=== PATIENT | male | born 1950 | race Caucasian/White ===

== ENCOUNTER 2016-03-31 12:56 | Emergency (ER) | payer OTHER ==
[~2016-03-31] VITALS: Ht 162.6 cm; Wt 99.0 kg
[2016-03-31 13:00] VITALS: Ht 162.6 cm; Wt 99.0 kg
[2016-03-31] MEDS ORDERED: DIPHTH/TET/ACEL PERTUSS (ADULT) 0.5 ML VIAL IM* ONE (14:30)
[2016-03-31] MEDS ORDERED: LIDOCAINE 1% (MDV) 20 ML INJ SC ONE (14:30)
--- NOTE | 2016-03-31 14:42 | ERD ---
ER Documentation Chief Complaint Date/Time DATE: 03/31/16 TIME: 14:38 Chief Complaint lac on L ear 15 min ago HPI Is a 65-year-old male who presents to the emergency department today with his son-in-law for a laceration to the back of his left ear. Son-in-law states that they were both doing some woodwork when a piece of wood fell on the patient's ear. Patient denies any headache, loss of consciousness or nausea or vomiting. Denies any pain. ROS All systems reviewed and are negative except as per history of present illness. Medications Home Meds Active Scripts Acetaminophen* (Tylophen*) 500 Mg Capsule, 1 CAP PO Q6H Y for PAIN AND OR ELEVATED TEMP, #30 CAP Prov:SHANNAN JJ PA-C 03/31/16 Ibuprofen* (Motrin*) 600 Mg Tab, 600 MG PO Q6, #30 TAB Prov:SHANNAN JJ PA-C 03/31/16 Cephalexin* (Keflex*) 500 Mg Capsule, 500 MG PO QID for 7 Days, CAP Prov:SHANNAN JJ PA-C 03/31/16 Sulfamethoxazole-Trimethoprim* (Bactrim* DS) 800-160 Mg Tab, 1 TAB PO BID for 7 Days, TAB Prov:SHANNAN JJ PA-C 03/31/16 PMhx/Soc Medical and Surgical Hx: pt denies Medical Hx, pt denies Surgical Hx Hx Alcohol Use: No Hx Substance Use: No Smoking Status: Never smoker Physical Exam Vitals Vital Signs Date Time Temp Pulse Resp B/P Pulse Ox O2 Delivery O2 Flow Rate FiO2 03/31/16 13:00 98.6 69 20 151/85 95 Physical Exam Const: Pleasant, no acute distress Head: Atraumatic . Nontender mastoid. No hematomas. Eyes: Normal Conjunctiva ENT: Left ear with 2.5 cm laceration on the posterior aspect of the auricle between the head and auricle. Bleeding well controlled. No evidence of foreign body. Neck: Full range of motion..~ No meningismus. Resp: Clear to auscultation bilaterally Cardio: Regular rate and rhythm, no murmurs Abd: Soft, non tender, non distended. Normal bowel sounds Skin: No petechiae or rashes Neur: Awake and alert Psych: Normal Mood and Affect Results 24 hrs Current Medications Medications (Trade) Dose Ordered Sig/Vladimir Route PRN Reason Start Time Stop Time Status Last Admin Dose Admin Diphtheria/ Tetanus/Acell Pertussis (Adacel) 0.5 ml ONCE ONCE IM* 03/31/16 14:30 03/31/16 14:31 DC 03/31/16 15:02 Lidocaine (Xylocaine 1% (Mdv) 20 ml) 20 ml ONCE ONCE SC 03/31/16 14:30 03/31/16 14:31 DC Procedures/MDM This is a 65 year old male who presents to the emergency department today for a left ear laceration he sustained earlier today while working with somewhat. On physical exam is a 2.5 cm laceration on the posterior aspect of the patient's ear between his head and her his ear attached at the auricle I did explain that the patient would likely need sutures and explained the risks and benefit and the patient agreed to proceed. The area was prepped in the usual sterile fashion. Patient tolerated the procedure well and there were no complications. Bleeding was well controlled. Patient denies any loss of consciousness, headache, dizziness and I do not feel the patient requires a head CT scan at this time. He has no focal neurologic deficits and no gait ataxia. Laceration Repair by me: Anesthesia: 1% lidocaine locally Location: Left ear Tendon/Joint/Nerves: No injury Foreign body: None detected after copious irrigation and exploration Technique: 8 Simple Interrupted Sutures 5-0 Nylon Complexity: No subcutaneous sutures/mucosal repair/ edge excision Post Closure Length: 2.5 cm Patient's bleeding was easily controlled in the department and there is no indication of anemia. No evidence of compartment syndrome, neurologic injury, vascular injury, open joint, tendon laceration, or foreign body. Patient is appropriate for outpatient follow up. 48 hour wound check. Scar minimization instructions given. Patient will be given a prescription for Keflex, Bactrim , Tylenol and Motrin. Was given a list of referrals for ENT specialist. Patient was given a TDAP injection here in the emergency department At this time the patient is stable for discharge and outpatient management. Patient should follow up with their PCP in the next 1-2 days. They may return to the emergency department sooner for any persistent or worsening of symptoms. Patient understood and agreed with the plan. Dr. Pisano and Dr. Lucas have both seen and evaluated the patient and is in agreement with the plan. Departure Diagnosis: Primary Impression: Laceration Condition: Fair SHANNAN JJ PA-C Mar 31, 2016 14:42
[2016-03-31] MEDS ORDERED: BACTDS PO (15:31)
[2016-03-31] MEDS ORDERED: CEPH-443 PO (15:32)
[2016-03-31] MEDS ORDERED: ACET500C5 PO (15:32)
[2016-03-31] MEDS ORDERED: IBUP-1542 PO (15:32)
== END 2016-03-31 15:38 | disposition home or self-care (01) ==
LOC: FTE 12:56
DX: S01.312A Laceration without foreign body of left ear, initial encounter (principal); W20.8XXA Other cause of strike by thrown, projected or falling object, initial encounter; Y92.9 Unspecified place or not applicable; Z23 Encounter for immunization
CPT/HCPCS: 12011; 90471; 90715; Z7502; Z7610

== ENCOUNTER 2016-04-02 13:34 | Emergency (ER) | payer OTHER ==
[~2016-04-02] VITALS: Wt 79.0 kg
[~2016-04-02 13:34] MED LIST: ACET500C5 PO; BACTDS PO; CEPH-443 PO; IBUP-1542 PO
--- NOTE | 2016-04-02 13:58 | ERD ---
ER Documentation Chief Complaint Date/Time DATE: 04/02/16 TIME: 13:55 Chief Complaint RECHECK OF LAC HPI This 65-year-old male returns to the ER for laceration recheck 2 days after his left ear was sutured. He states he has no increasing pain and no discharge from the wound. He has not yet showered or clean the area. He has no other complaints. ROS All systems reviewed and are negative except as per history of present illness. Medications Home Meds Active Scripts Acetaminophen* (Tylophen*) 500 Mg Capsule, 1 CAP PO Q6H Y for PAIN AND OR ELEVATED TEMP, #30 CAP Prov:PROSHANNAN LARSEN-C 03/31/16 Ibuprofen* (Motrin*) 600 Mg Tab, 600 MG PO Q6, #30 TAB Prov:PROSHANNAN LARSEN-C 03/31/16 Cephalexin* (Keflex*) 500 Mg Capsule, 500 MG PO QID for 7 Days, CAP Prov:PROSHANNAN LARSEN-C 03/31/16 Sulfamethoxazole-Trimethoprim* (Bactrim* DS) 800-160 Mg Tab, 1 TAB PO BID for 7 Days, TAB Prov:SHANNAN JJ-C 03/31/16 PMhx/Soc Medical and Surgical Hx: pt denies Medical Hx, pt denies Surgical Hx Hx Alcohol Use: No Hx Substance Use: No Physical Exam Vitals Vital Signs Date Time Temp Pulse Resp B/P Pulse Ox O2 Delivery O2 Flow Rate FiO2 04/02/16 13:36 98.0 67 18 132/70 99 Physical Exam Const: [] No distress Head: Atraumatic Eyes: Normal Conjunctiva ENT: Normal External Ears, Nose and Mouth. The area where the upper left ear meets the scalp is a well-healing 3 cm laceration with sutures intact. There is no discharge and no signs of infection. No surrounding erythema, no calor. Tympanic membrane and ear canal within normal limits as well. Neck: Full range of motion..~ No meningismus. Procedures/MDM Simple laceration recheck with no signs of infection. I did clean the area with alcohol wipes. Instructed patient to return in 4 days for suture removal. Return sooner if he has any pain or discharge from the wound. Departure Diagnosis: Primary Impression: Laceration re-check Condition: Stable Patient Instructions: Wound Check, Lac F/U (No Infection) Additional Instructions: Return to ER in 4 days for suture removal. Call your primary care doctor TOMORROW for an appointment during the next 2-3 days.See the doctor sooner or return here if your condition worsens before your appointment time. SANCHEZ IZAGUIRRE DO Apr 02, 2016 13:58
== END 2016-04-02 13:56 | disposition home or self-care (01) ==
LOC: FTE 13:34
DX: Z48.01 Encounter for change or removal of surgical wound dressing (principal)
CPT/HCPCS: 99281

== ENCOUNTER 2016-04-06 13:01 | Emergency (ER) | payer OTHER ==
[~2016-04-06] VITALS: Wt 78.0 kg
[2016-04-06] MEDS ORDERED: NEOM28OI TP (13:38)
[2016-04-06] MEDS ORDERED: CEPH500C PO (13:38)
--- NOTE | 2016-04-06 13:41 | ERD ---
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 He has no complaints of fevers, vomiting, and minimal pain. ROS All systems reviewed and are negative except as per history of present illness. Medications Home Meds Active Scripts Cephalexin* (Cephalexin*) 500 Mg Capsule, 500 MG PO Q6 for 7 Days, #28 CAP Prov:JOANN DIAZ MD 04/06/16 Neomycin Lau/Bacitrac Zn/Poly (Triple Antibiotic Ointment) 28 Gm Oint...g., 28 GM TP TID for 7 Days Prov:JOANN DIAZ MD 04/06/16 Acetaminophen* (Tylophen*) 500 Mg Capsule, 1 CAP PO Q6H Y for PAIN AND OR ELEVATED TEMP, #30 CAP Prov:SHANNAN JJ PA-C 03/31/16 Ibuprofen* (Motrin*) 600 Mg Tab, 600 MG PO Q6, #30 TAB Prov:SHANNAN JJ PA-C 03/31/16 Cephalexin* (Keflex*) 500 Mg Capsule, 500 MG PO QID for 7 Days, CAP Prov:SHANNAN JJ PA-C 03/31/16 Sulfamethoxazole-Trimethoprim* (Bactrim* DS) 800-160 Mg Tab, 1 TAB PO BID for 7 Days, TAB Prov:SHANNAN JJ PA-C 03/31/16 Allergies Allergies: Coded Allergies: No Known Allergy (Unverified , 04/06/16) PMhx/Soc Medical and Surgical Hx: pt denies Medical Hx, pt denies Surgical Hx Hx Alcohol Use: No Hx Substance Use: No Hx Tobacco Use: No Smoking Status: Never smoker Physical Exam Vitals Vital Signs Date Time Temp Pulse Resp B/P Pulse Ox O2 Delivery O2 Flow Rate FiO2 04/06/16 13:14 97.8 65 21 127/73 96 Physical Exam Const: [] Alert, [id number] per Head: Atraumatic Eyes: Normal Conjunctiva ENT: Normal External Ears, Nose and Mouth. There is a healing laceration superior to the left auricle. There is some slight yellow dried discharge but no erythema, warmth, bleeding or discharge. Neck: Full range of motion..~ No meningismus. Resp: Clear to auscultation bilaterally Cardio: Regular rate and rhythm, no murmurs Abd: Soft, non tender, non distended. Normal bowel sounds Skin: No petechiae or rashes Back: No midline or flank tenderness Ext: No cyanosis, or edema Neur: Awake and alert Psych: Normal Mood and Affect Procedures/MDM Sutures were removed without complications. The wound appears to be healing somewhat by secondary intention but no gross dehiscence through the dermis. Given the discharge location patient will be treated with a triple antibiotic cream and Keflex and instructions to return for fevers, redness, symptoms. There is no signs or symptoms to suggest cartilage bacterial infection, significant cellulitis or osteomyelitis. Departure Diagnosis: Primary Impression: Encounter for removal of sutures Condition: Stable Patient Instructions: Suture Removal, No Complication Additional Instructions: Recheck for worsening swelling, redness, fevers, new symptoms. JOANN DIAZ MD Apr 06, 2016 13:41
== END 2016-04-06 14:00 | disposition home or self-care (01) ==
LOC: FTE 13:01
DX: Z48.02 Encounter for removal of sutures (principal)
CPT/HCPCS: 99283